=== PATIENT | female | born 1935 | race Caucasian/White ===

== ENCOUNTER 2016-12-15 13:06 | Inpatient (IN) | payer MEDICARE, OTHER ==
[~2016-12-15] VITALS: Ht 172.7 cm; Wt 87.1 kg
[~2016-12-15 13:06] MED LIST: ATOR20TA PO; CALC-190 PO; CHOL200047 PO; METO25TA99 PO; RIVA10TA PO; RIVA1PAT9 TRANSDERM; WALK1EAC55 MC
[2016-12-15 13:13] VITALS: BP 155/86; PULSE 114; RESP 22; O2SAT 93
[2016-12-15 13:56] LABS: BASOPHILS % (AUTO) 0.4 % (0-3); EOSINOPHILS % (AUTO) 0.4 % (0-5); MONOCYTES % (AUTO) 12.4 % (4-12); Mean Corpuscular Hemoglobin 30.8 pg (27.0-35.0); Mean Corpuscular Volume 93.8 fL (81-100); NEUTROPHILS % (AUTO) 76.6 % (40-74); Platelet Count 222 bil/L (150-400)
--- NOTE | 2016-12-15 14:22 | ED.REPORT ---
HPI-General Illness Date of Service Dec 15, 2016 ED Provider: Billy Cid MD Pt is an 81 y/o female w/ a hx of dementia, a-fib, HTN, PE, presenting to the ED from Urgent Care with her daughter c/o fever and cough onset yesterday. The pt was found to be febrile with a cough at her assisted living fdc community [facility] and was sent from Urgent Care for an evaluation. She was taken off Xarelto in October because her PCP felt it would do more harm than good. Her fdc home informs us that she is normally quite energetic and independent and for the past day she has been mildly fatigued. She is at her baseline confusion level. They deny N/V/D, CP, SOB. History limited due to dementia. Nursing Notes Stated Complaint: IRREGULAR HR Chief Complaint: FLU/Cold Symptoms Nursing Notes Reviewed: Yes (Verosee not reconciled - EMR indicates Xarelto use) Allergies: Coded Allergies: No Known Allergies (Unverified , 12/15/16) Scheduled Atorvastatin (Lipitor) 20 Mg Tablet 20 MG PO HS Ca Carb/Vit D3/Mag Ox/Zn Oxide (Timoteo Mag Zinc + D3 Tablet) 1 Each Tablet 1 EACH PO DAILY Memantine (Namenda) 10 Mg Tablet 5 MG PO BID Metoprolol Succinate ER (Metoprolol Succinate ER) 25 Mg Tab.er.24h 25 MG PO DAILY Scheduled PRN Acetaminophen (Tylenol Arthritis) 650 Mg Tablet.er 650 MG PO QID PRN PRN For Pain General Time Seen by MD: 14:18 Chief Complaint Other (Flu-like) Hx Obtained From: Patient, Daughter Arrived By: Wheelchair Sudden in Onset?: No Onset Occurred: 1 day ago Symptom Duration: Since onset Severity: Current: No pain currently Severity: Maximum: No pain Similar Sx Previous: No Past Medical History Past Medical History 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 Recently taken off Xarelto October 2016 Hx pulmonary embolism Alzheimer's disease Significant dementia Reports: Hyperlipidemia, Hypertension Smoking History Never Smoker Social History Other Social History: Good social support Ambulatory Status Independent Review of Systems Full Review of Systems Constitutional: Reports: Fever, Weakness - generalized Respiratory: Reports: Non-productive cough, Denies: Shortness of breath Cardiovascular: Denies: Chest pain GI: Denies: Abdominal pain, Diarrhea, Nausea, Vomiting Neurologic: Denies: Confusion Complete sys rev & neg: except as marked. Physical Exam Vital Signs Vital Signs Date Time Temp Pulse Resp B/P Pulse Ox O2 Delivery O2 Flow Rate FiO2 12/15/16 14:51 38.1 105 22 122/78 96 Room Air 12/15/16 13:13 39.0 114 22 155/86 93 Room Air Initial VS: Reviewed, Vital signs abnormal Head / Eyes: Atraumatic, Normocephalic, PERRL ENT: Mucous membranes moist, Conjunctiva normal, No scleral icterus Neck: Supple, Full range of motion Abdomen / GI: Soft, Non-tender, No guarding, No rebound, No distention Extremities: Vascular intact, Neuro intact, No swelling, No tenderness Skin: Warm, Dry, No cyanosis General/Constitutional: Awake, No acute distress, Cooperative, Not toxic appearing Demented, slightly confused, restless - according to family this is at baseline Febrile Respiratory / Chest: Atraumatic, Breath sounds = bilat, No respiratory distress , No wheezing, No retractions Rhonchi throughout Cardiovascular: Regular rhythm, Heart sounds NL, No gallop, No murmurs, No rubs , Cap refill not delayed, Peripheral circulation NL Heart Rate / Rhythm: Positive: Tachycardia Neurologic: Speech NL, No motor deficits, No sensory deficits Mental Status: Positive: Confused (Mild) Demented, slightly confused, poor historian - according to daughter this is baseline Psychiatric: Affect NL Poor insight into her own medical condition Interpretation & Diagnostics Lab Results Interpretation Result Diagram: 12/15/16 1340 12/15/16 1340 Test 12/15/16 13:40 White Blood Count 7.3th/mm3 (3.8-10.1) Red Blood Count 4.67mil/mm3 (3.90-5.20) Hemoglobin 14.4g/dL (12.0-15.6) Hematocrit 43.8% (35.0-46.0) Mean Corpuscular Volume 93.8fL (81-100) Mean Corpuscular Hemoglobin 30.8pg (27.0-35.0) Mean Corpuscular Hemoglobin Concent 32.9% (32.0-37.0) Red Cell Distribution Width 14.7% (12.3-15.4) Platelet Count 222bil/L (150-400) Neutrophils (%) (Auto) 76.6% (40-74) Lymphocytes (%) (Auto) 9.9% (14-46) Monocytes (%) (Auto) 12.4% (4-12) Eosinophils (%) (Auto) 0.4% (0-5) Basophils (%) (Auto) 0.4% (0-3) Prothrombin Time 11.1sec (8.1-12.5) Prothromb Time International Ratio 1.04ratio Sodium Level 140mEq/L (134-144) Potassium Level 4.4mEq/L (3.5-5.2) Chloride Level 101mEq/L (97-108) Carbon Dioxide Level 22mmol/L (18-29) Blood Urea Nitrogen 20mg/dL (8-27) Creatinine 0.80mg/dL (0.57-1.00) Estimat Glomerular Filtration Rate 98mL/min (>59) Glucose Level 106mg/dL (60-99) Lactic Acid Level 1.5mmol/L (0.4-2.0) Calcium Level 9.4mg/dL (8.5-10.1) Magnesium Level 2.2mg/dL (1.6-2.6) Total Bilirubin 0.8mg/dL (0.0-1.2) Aspartate Amino Transf (AST/SGOT) 36U/L (0-50) Alanine Aminotransferase (ALT/SGPT) 33U/L (0-32) Alkaline Phosphatase 91U/L (25-165) Troponin T < 0.010ug/L (0.0-0.011) Total Protein 7.7g/dL (6.4-8.4) Albumin 4.5g/dL (3.4-5.0) Lab Results Interpretation: Rapid flu swab positive for Influenza A CBC normal CMP normal Lactic acid normal Troponin negative Blood cultures pending ECG Interpretation ECG Interpretation: Sinus tachycardia rate 109 Q waves inferiorly Time: 15:05 Interpreted by: ED physician Normal ECG Interpretation: No acute ischemic changes X-Ray Chest Interpretation Chest Xray Interpretation: IMPRESSION: Patchy bilateral upper lobe opacities, suggestive of pneumonia. Dictated by: Kelly Chan M.D. on 12/15/2016 at 14:33 Approved by: Kelly Chan M.D. on 12/15/2016 at 14:33 View: Portable, 1 view Interpretation / Wet Read by: Interpret - Radiologist Re-Eval/Medical Decision Med Decision/Clinical Course This is an 81-year-old female with dementia who was not able bodied useful history. He is noted to have fevers, weakness, and not be quite her energetic self at [facility]. Staff called the family who took her to urgent care where she was noted be febrile, tachycardic, and was sent to the ED. Patient does not endorse a specific complaint but has significant dementia and is unable to give a useful history. History is from [facility] who were contacted , and from the family in the room. Patient is febrile, tachycardic, she is slightly restless, she is confused-the family thinks that to close to baseline. She does have a cough. Her workup is no for being influenza A positive, chest x -ray also positive for bilateral pneumonia. She does not appear toxic, and her blood work is relatively reassuring. However this is a confused, demented, lives in independent living, who has abnormal vitals, bilateral pneumonia, superimposed on influenza-I talked to [facility], they are concerned about being able to appropriately monitor her , basically to take her back shortly if she improves rapidly. The patient was started on Tamiflu, given hydration, and given the presence of secondary pneumonia and started on antibiotics with ceftriaxone and azithromycin for routine acquired pneumonia. She is also given additional Tylenol for fever-once it for hours and passed from her dose prior to coming in. Her temperature did come down, her heart rate did improve. She is admitted in stable condition. Source of Hx: Old records Time of Eval: 15:16 Patient Status: Condition improved Re-Evaluation/Progress Note: Pt rechecked. Informed pt of need for admission. Pt understands and agrees with plan for admission. All questions addressed. Consultation : Referral / Consult Name: Chanel Loyd MD Consulted With: Hospitalist Call Returned at: 15:17 Hand Cementer: Will see patient, Agrees with eval, Agrees with plan, Accepts admit Note: Case discussed Differential Diagnosis: Positive: Influenza, Pneumonia, Negative: Abdominal pain, Abscess, Allergies, Drug dependence, Laceration, Neutropenia Counseled Regarding: Diagnosis, Lab results, Need for admission Discharge & Departure Primary Impression: Influenza A Additional Impression: Bilateral pneumonia Pneumonia type: due to unspecified organism Lung location: upper lobe of lung Qualified Code: J18.9 - Pneumonia, unspecified organism Disposition: ADMITTED TO HOSPITAL Discharge Condition All VS Reviewed: Yes Condition: Stable Referrals: Opal Anne DO (PCP) Sudha Attestation Portions of this note were transcribed by Kevin Mensah. I, Dr. Cid personally performed the history, physical exam and medical decision-making; I reviewed and confirmed the accuracy of the information in the transcribed note. Signed by Sudha Bay, 12/15/16 - 1500 copies to: Opal Anne Matthew F MD Dec 15, 2016 14:22 KEVIN MENSAH Dec 15, 2016 14:34
[2016-12-15] MEDS ORDERED: 0.9% Sodium Chloride 1,000 ML IV ONE (14:35)
--- NOTE | 2016-12-15 14:35 | DRSVH ---
PROCEDURE: X-RAY CHEST ONE VIEW, PORTABLE ([id number]) INDICATIONS: SEPSIS TECHNIQUE: One view of the chest was acquired. COMPARISON: [facility], CR, XR CHEST 2VW, 07/11/2016, 9:38. FINDINGS: Surgical changes and devices: None. Lungs and pleura: No pleural effusions or pneumothorax. Patchy bilateral upper lobe opacities. Mediastinum: Mediastinal contours appear normal. Heart size is normal. Bones and chest wall: No suspicious bony lesions. Overlying soft tissues appear unremarkable. IMPRESSION: Patchy bilateral upper lobe opacities, suggestive of pneumonia. Dictated by: Kelly Chan M.D. on 12/15/2016 at 14:33 Approved by: Kelly Chan M.D. on 12/15/2016 at 14:33
[2016-12-15 14:36] LABS: INR 1.04 ratio
[2016-12-15 14:48] LABS: Magnesium 2.2 mg/dL (1.6-2.6); TROPONIN T < 0.010 ug/L (0.0-0.011)
[2016-12-15 14:51] VITALS: BP 122/78; PULSE 105; RESP 22; O2SAT 96
[2016-12-15] MEDS ORDERED: Azithromycin Inj 500 MG in Dextrose 5% w/Vial Mate 250 ML IV ONE (15:05)
[2016-12-15] MEDS ORDERED: cefTRIAXone Inj 2,000 MG in IV Premix 1 EACH IV ONE (15:05)
[2016-12-15] MEDS ORDERED: cefTRIAXone Inj 2,000 MG in Dextrose 5% Minibag Plus 50 ML IV SCH (15:26)
[2016-12-15] MEDS ORDERED: ACET-2766 PO (15:34)
[2016-12-15] MEDS ORDERED: NAM10 PO (15:34)
[2016-12-15] MEDS ORDERED: CA C1TAB77 PO (15:34)
[2016-12-15] MEDS ORDERED: Ondansetron 2 mg/mL 2 mL Inj IVPUSH PRN (15:50)
[2016-12-15] MEDS ORDERED: Alum-Mag Hydrox-Simeth 30 mL Suspension PO PRN (15:50)
[2016-12-15] MEDS ORDERED: Polyethylene Glycol (PEG) 17 Gm Powder PO PRN (16:25)
[2016-12-15] MEDS ORDERED: Albuterol 2.5 mg/3 mL Inhalation Solution NEB PRN (16:25)
[2016-12-15] MEDS: Sodium Chloride LOK Flush 10 mL Syringe IVFLUSH SCH ×2 (16:30→23:53)
[2016-12-15 16:45] VITALS: BP 134/73; PULSE 95; RESP 20; O2SAT 93
[2016-12-15] MEDS: 0.9% Sodium Chloride 1,000 ML IV SCH ×2 (16:55→23:52)
--- NOTE | 2016-12-15 18:10 | PCM.HPMED ---
Subjective Date of Service Dec 15, 2016 Primary Provider: Admitting Physician: Chanel Loyd MD Primary Care Physician: Opal Anne DO Attending Physician: Chanel Loyd MD Admit Status: From the Emergency Department, Full Admit, Admit to Blue Team Chief Complaint: cough and fever History of Present Illness: Yulisa is an 81yo [place] born female with Alzheimer's dementia and a history of pulmonary embolism in 06/2016 who presented to urgent care from [facility] with an intermittent cough and new onset of fever. Her fever was not reduced with acetaminophen today and thus they decided she needed medical evaluation. She was found to be tachycardic and was then routed to the ER where she tested positive for influenza A and found to have a temperature of 39.0 on arrival. Chest xray in the ER is suggestive of bilateral upper lobe pneumonia. She is at her baseline mental status and not able to provide a complete history of her symptoms over the past several days. Yulisa denies any dyspnea or chest pain. Per he daughter in law, Camryn, there have been several other people at [facility] that have been ill lately. Review of Systems: A comprehensive review of systems was conducted with the patient and found to be negative except as above in the History of Present Illness, note that her memory is not fully intact. Allergies Coded Allergies: No Known Allergies (Unverified , 12/15/16) Home Medications Atorvastatin 40mg qHS Metoprolol succinate 25mg daily Namenda 5mg BID Calcium supplement 500mg daily PMH Pulmonary embolism with catheter directed TPA given 07/09/2016 Has not been taking any anticoagulation for 18 days Alzheimer's dementia Hyperlipidemia Essential Hypertension, well controlled Surgical History Bilateral cataract surgery Family History No known cardiopulmonary disease in the family No known family hx of TB Father of Alzheimer's dementia Social History Hx Alcohol Use: No Hx Substance Use: No Hx Tobacco Use: No Smoking Status: Never Smoker Additional Information Yulisa is a who lives at [facility]. Her son, Akash, and his , Camryn, live locally and are her support system. She was born in [facility] and immigrated to the [place] following [place]. She does not use any assistive devices for ambulation and does not use any home oxygen. Exam Vital Signs Vital Sign - Last Date Time Temp Pulse Resp B/P Pulse Ox O2 Delivery O2 Flow Rate FiO2 12/15/16 15:50 38.1 105 22 122/78 96 Room Air Exam General: Elderly female patient resting comfortably in bed upon my entering the room. No acute distress, well-developed, well-nourished. Awake and alert. Oriented to person, not to time. Knows she is in [facility], does not know the city or that she is in a hospital. Pleasant. HEENT: Normocephalic, atraumatic. External ears without defect. Anicteric sclerae, moist conjunctivae. Oropharynx free of erythema and cobble stoning with moist mucosa. Neck: Supple with full range of motion. No jugular venous distension. No lymphadenopathy. Cardiovascular: Regular rate and rhythm with no murmurs, rubs, or gallops appreciated Pulmonary: Clear to auscultation bilaterally without crackles or rhonchi. There is a very subtle inspiratory wheeze on the right. Normal respiratory effort without use of accessory muscles. Abdomen: Normoactive bowel tones. Soft, nontender, nondistended. No hepatosplenomegaly or masses appreciated. Extremities: No clubbing, cyanosis, or edema appreciated. Skin: Normal temperature, turgor, and texture. Neurological: Cranial nerves grossly intact. Normal muscle strength, tone, and bulk. Upper extremity and lower extremity DTRs 2+ bilaterally. Psychiatric: Normal mood and affect. Lab and Diagnostics Result Diagram: 12/15/16 1340 12/15/16 1340 X-Rays, CTs and MRIs Chest xray: FINDINGS: Surgical changes and devices: None. Lungs and pleura: No pleural effusions or pneumothorax. Patchy bilateral upper lobe opacities. Mediastinum: Mediastinal contours appear normal. Heart size is normal. Bones and chest wall: No suspicious bony lesions. Overlying soft tissues appear unremarkable. IMPRESSION: Patchy bilateral upper lobe opacities, suggestive of pneumonia. Dictated by: Kelly Chan M.D. on 12/15/2016 at 14:33 Assessment & Plan Yulisa is a pleasant 81yo female with Alzheimer's dementia who presented to the Emergency department with new onset fever and cough. She is well known to me as I am her primary care provider. She has been admitted for the management of influenza A and potential pneumonia. 1. Influenza A, acute - Symptomatic and positive rapid flu swab - Tamiflu to be started - Acetaminophen PRN fever - Drop precautions - Monitor 2. Possible bilateral upper lobe pneumonia - Treating with ceftriaxone and Azithromycin for now - Procalcitonin ordered - Legionella and strep Ag testing ordered - Sputum culture - May consider discontinuation of antibiotics if this does not declare itself to be an obvious pneumonia and is not effecting her quality of life as her care goals, which are outlined in her POLST form, include antibiotics for comfort only. - Given her hx of pulmonary embolism not on anticoagulation, there is potential that she could have a pulmonary embolism accounting for her tachycardia, however the patient does not want treatment for a PE if there is one present. 3. Alzheimer's dementia, chronic - Continue with Namenda which she takes 5mg BID at home - May require extra reassurance regarding her environment 4. Hyperlipidemia, chronic and well controlled - Continue with home dosing of atorvastatin 5. Essential Hypertension, chronic and well controlled - Has been taking metoprolol succinate for many years, will continue her home dose. Bowel regimen PRN Diet: General Márquez is admitted under inpatient status with expected length of stay greater than 2 midnights due to risk of adverse event, coordination of care, and complexity of treatment plan. VTE Prophylaxis: Sub-Q Heparin (Unfractionated) Resuscitation Status: DNR/DNI:Do Not Resuscitate/Intubate (Reviewed POLST signed in 06/2016 with the patient and her daughter in law who agree to continue with DNR status.) Time spent 45 minutes Attending Statement I have seen and examined patient at bedside in addition to directly supervising care provided by resident physician. I agree with above documentation. Opal Anne DO Dec 15, 2016 16:50 Jaime Ornelas DO Dec 16, 2016 07:37
[2016-12-15] MEDS: Heparin 5,000 Unit/mL Inj SUBQ SCH (18:19)
--- NOTE | 2016-12-15 18:27 | NUR ---
Admit Pt arrived to floor at 1630, able to transfer self to bed after standing scale weight. Pt oriented to self only, but able to make clear conversation. IVF's infusing as ordered. Per ED report, zithromax not yet given. Pharmacy notified to send zithromax to floor, not yet received. Mild nonproductive cough noted. Pt currently resting comfortably in bed, voices no complaints.
[2016-12-15 20:30] VITALS: BP 141/86; PULSE 87; RESP 18; O2SAT 94
[2016-12-15 21:10] LABS: APPEARANCE,URINE CLEAR (CLEAR,HAZY); COLOR,URINE YELLOW (YELLOW); OCCULT BLOOD,URINE NEGATIVE (NEGATIVE); PH,URINE 5.5 (5.0-8.0)
[2016-12-16] MEDS: Heparin 5,000 Unit/mL Inj SUBQ SCH ×3 (01:02→16:57)
[2016-12-16 06:07] VITALS: BP 127/73; PULSE 73; RESP 18; O2SAT 94
--- NOTE | 2016-12-16 06:45 | NUR ---
PT ACTIVITY Pt awake briefly during beginning of shift. Pt up to BR, took evening medications, then slept for most of shift. Pt oriented to self. Pt is pleasant, disoriented to situation, able to answer questions appropriately. No c/o pain. Continue to monitor. Call light in reach. Bed alarm on. Intentional rounding.
[2016-12-16] MEDS ORDERED: cefTRIAXone Inj 2 GM in IV Premix 1 EACH IV SCH (08:30)
[2016-12-16] MEDS ORDERED: Azithromycin Inj 500 MG in Dextrose 5% w/Vial Mate 250 ML IV SCH (08:30)
[2016-12-16] MEDS: Calcium Carbonate (Oyster Shell) 500 mg Tablet PO SCH (09:27)
[2016-12-16] MEDS: MeTOProlol XL 25 mg ER24 Tablet PO SCH (09:28)
[2016-12-16] MEDS: Sodium Chloride LOK Flush 10 mL Syringe IVFLUSH SCH ×2 (09:35→16:57)
[2016-12-16 13:14] VITALS: BP 123/86; PULSE 95; RESP 18; O2SAT 95
--- NOTE | 2016-12-16 13:49 | PCM.PNMED ---
Subjective Date of Service Dec 16, 2016 Subjective Yulisa reports that she is feeling fine. She continues to have a periodic nonproductive cough. Exam Vital Signs Vital Sign - Last Date Time Temp Pulse Resp B/P Pulse Ox O2 Delivery O2 Flow Rate FiO2 12/16/16 13:14 36.4 95 18 123/86 95 Room Air Intake and Output 12/15/16 12/15/16 12/16/16 Cumulative From/Thru 15:00 23:00 07:00 12/15/16 13:13 - 12/16/16 06:44 Intake Total 1000 ml 860 ml 822 ml 2682 ml Output Total 300 ml 450 ml 750 ml Balance 1000 ml 560 ml 372 ml 1932 ml Intake Oral 237 ml 100 ml 337 ml IV Total 1000 ml 623 ml 722 ml 2345 ml Output Urine Total 300 ml 450 ml 750 ml Exam General: Elderly female sitting in the bedside chair eating breakfast this morning. No acute distress, well-nourished. Awake and alert. Oriented to person. Does not know the year or season. REWports being in [facility], does not know the city or that she is in a hospital. Pleasant. HEENT: Normocephalic, atraumatic. External ears without defect. Anicteric sclerae, moist conjunctivae. Moist mucus membranes Cardiovascular: Regular rate and rhythm with no murmurs, rubs, or gallops appreciated Pulmonary: Clear to auscultation bilaterally without wheezes, crackles or rhonchi. Normal respiratory effort without use of accessory muscles. Abdomen: Normoactive bowel tones. Soft, nontender, nondistended. No hepatosplenomegaly or masses appreciated. Extremities: No clubbing, cyanosis, or edema appreciated. Skin: Normal temperature, turgor, and texture. Neurological: Cranial nerves grossly intact. Normal muscle strength, tone, and bulk. Psychiatric: Normal mood and affect. IVs and Medications Medications Reviewed: Medications were reviewed in detail Lab and Diagnostics Result Diagram: 12/15/16 1340 12/15/16 1340 Assessment & Plan Yulisa is a pleasant 81yo female with Alzheimer's dementia who presented to the Emergency department with new onset fever and cough. She is well known to me as I am her primary care provider. She has been admitted for the management of influenza A and potential pneumonia. 1. Influenza A, acute, present on admission - Symptomatic and positive rapid flu swab - Continue Tamiflu - Acetaminophen PRN fever - Droplet precautions - Monitor 2. Possible bilateral upper lobe pneumonia based on chest xray - Chest clear to auscultation and procalcitonin is low - Treating with ceftriaxone and Azithromycin for now - Considering discontinuation of antibiotics as this is not an obvious pneumonia and her care goals, which are outlined in her POLST form, include antibiotics for comfort only. - Given her hx of pulmonary embolism not on anticoagulation, there is potential that she could have a pulmonary embolism accounting for her tachycardia in the ER, however the patient does not want treatment for a PE if there is one present. I suspect the tachycardia was due to fever with influenza. 3. Alzheimer's dementia, chronic and stable - She is at her baseline mental status - Continue with Namenda which she takes 5mg BID at home - May require extra reassurance regarding her environment 4. Hyperlipidemia, chronic and well controlled - Continue with home dosing of atorvastatin 5. Essential Hypertension, chronic and well controlled - Has been taking metoprolol succinate for many years, will continue her home dose. Bowel regimen PRN Diet: General Dispo: Anticipate discharge tomorrow, back to [facility] VTE Prophylaxis: Sub-Q Heparin (Unfractionated) Resuscitation Status: DNR/DNI:Do Not Resuscitate/Intubate (Reviewed POLST signed in 06/2016 with the patient and her daughter in law who agree to continue with DNR status.) Time spent 25 minutes Attending Statement I have seen and evaluated patient at bedside in addition to directly supervising care provided by resident physician. I agree with above documentation. Opal Anne DO Dec 16, 2016 13:49 Jaime Ornelas DO Dec 17, 2016 08:33
--- NOTE | 2016-12-16 16:25 | NUR ---
Social Work: Initial Assessment Data: Pt is an 81 y/o female admitted for pneumonia, influenza A. Pt's PCP is Dr Mauricio, pt's insurance is Medicare with [employer] out of state supp. EMR reviewed, CIGAR HEAD STRINGER met with pt and son at bedside, role explained. Pt has dementia, pt's son answered questions. Pt lives at [facility], no steps, pt has no history of HH or SNF, no LTC or VA benefits, and is not a caregiver for another. Pt son states he is the DPOA. CIGAR HEAD STRINGER requested a copy for hospital. CIGAR HEAD STRINGER will call [facility] on 12/17 to talk about need for re-assessment. CIGAR HEAD STRINGER will continue to follow. Assessment: Pt with dementia. Plan: Pt will likely d/c back to [facility]. CIGAR HEAD STRINGER to call [facility] 12/17. CIGAR HEAD STRINGER will continue to follow. KAVIN Whitney Addendum: 12/16/16 at 1630 by EVIN SORIA Amended: Links added.
--- NOTE | 2016-12-16 17:53 | NUR ---
UNSTEADY GAIT P: Pt states that her balance is off, since she's been sick and her gait is slightly unsteady. I: Pt's bed is in lowest, locked position, bed and chair alarms have been utilized, non-skid footwear worn all day, and provided pt education on using her call light when she wants to use the BR or go for a walk. E: Pt has used her call light for most of the day, but sometimes forgets d/t her dementia. Pt is tolerating activity well.
[2016-12-16 21:14] VITALS: BP 154/91; PULSE 95; RESP 18; O2SAT 95
[2016-12-17] MEDS: Heparin 5,000 Unit/mL Inj SUBQ SCH ×3 (00:59→17:14)
[2016-12-17] MEDS: Sodium Chloride LOK Flush 10 mL Syringe IVFLUSH SCH ×3 (00:59→17:15)
[2016-12-17 05:28] VITALS: BP 131/71; PULSE 76; RESP 18; O2SAT 92
[2016-12-17] MEDS: Calcium Carbonate (Oyster Shell) 500 mg Tablet PO SCH (07:53)
[2016-12-17] MEDS: MeTOProlol XL 25 mg ER24 Tablet PO SCH (07:53)
--- NOTE | 2016-12-17 09:00 | NUR ---
BRIELLE signed Verbal consent to sign by pt's son. KAVIN Whitney
--- NOTE | 2016-12-17 09:25 | NUR ---
Social Work: Continued d/c planning Data: Pt is on day 2 of hospitalization. EMR reviewed. TRACK INSPECTING SUPERVISOR called [facility] and confirmed pt is on their Assisted living side. TRACK INSPECTING SUPERVISOR spoke with Davina about if pt will require a re-assessment before d/c. Davina states they will do an evaluation today before the weekend. TRACK INSPECTING SUPERVISOR will await phone call form them regarding assessment. TRACK INSPECTING SUPERVISOR will continue to follow. Assessment: Pt with dementia from [facility]. Plan: Pt will likely d/c back to [facility]. TRACK INSPECTING SUPERVISOR will await phone call form them regarding assessment. TRACK INSPECTING SUPERVISOR will continue to follow. KAVIN Whitney
--- NOTE | 2016-12-17 10:33 | NUR ---
BRIELLE: Patient unable to receive BRIELLE asked PIECER to follow up with family via phone.
--- NOTE | 2016-12-17 11:02 | NUR ---
Social Work: Readiness for d/c Data: Pt is on day 2 of hospitalization, EMR reviewed, pt discussed in rounds. states that pt is likely ready for d/c today. Davina from [facility] called SUSTAINABILITY COMMUNICATOR and stated they no longer need to re-assess pt before d/c and that she can return when stable. SUSTAINABILITY COMMUNICATOR will continue to follow. Plan: Pt will return to [facility] via POV with son when medically stable, likely today. SUSTAINABILITY COMMUNICATOR will continue to follow. KAVIN Whitney
--- NOTE | 2016-12-17 15:02 | NUR ---
Evaluation completed. Please go to "Notes" then click on "Assessments and Notes" (bottom left corner of screen). Then select appropriate discipline tab on top of screen.
--- NOTE | 2016-12-17 16:05 | NUR ---
Social Work: Continued d/c planning Data: [employer] COACH spoke with MD and with pt's son. states that pt will remain in the hospital for the night and will likely d/c tomorrow. Pt's son plans to provide transportation tomorrow. [facility] states pt does not require an assessment before pt returns. [employer] COACH will continue to follow. Assessment: Pt with dementia. Plan: Pt will d/c back to [facility] when medically stable, likely tomorrow. [employer] COACH will continue to follow. KAVIN Whitney
--- NOTE | 2016-12-17 18:50 | PCM.PNMED ---
Subjective Date of Service Dec 17, 2016 Subjective Yulisa reports that she is feeling a bit more tired than usual. Per nursing, she has been a bit unsteady on her feet. She denies any dizziness. Exam Vital Signs Vital Sign - Last Date Time Temp Pulse Resp B/P Pulse Ox O2 Delivery O2 Flow Rate FiO2 12/17/16 05:28 36.6 76 18 131/71 92 Room Air Intake and Output 12/16/16 12/16/16 12/17/16 Cumulative From/Thru 15:00 23:00 07:00 12/15/16 13:13 - 12/17/16 06:49 Intake Total 731 ml 1072 ml 200 ml 4685 ml Output Total 800 ml 1700 ml 3250 ml Balance 731 ml 272 ml -1500 ml 1435 ml Intake Oral 1072 ml 200 ml 1609 ml IV Total 731 ml 3076 ml Output Urine Total 800 ml 1700 ml 3250 ml # Voids 1 1 # Bowel Movements 0 0 0 Exam General: Elderly female sitting in the bedside chair eating breakfast this morning. No acute distress, well-nourished. Awake and alert. Oriented to person and place, not to time. HEENT: Normocephalic, atraumatic. External ears without defect. Anicteric sclerae, moist conjunctivae. Moist mucus membranes Cardiovascular: Regular rate and rhythm with no murmurs, rubs, or gallops appreciated Pulmonary: Clear to auscultation bilaterally without wheezes, crackles or rhonchi. Normal respiratory effort without use of accessory muscles. Abdomen: Normoactive bowel tones. Soft, nontender, nondistended. No hepatosplenomegaly or masses appreciated. Extremities: No clubbing, cyanosis, or edema appreciated. Skin: Normal temperature, turgor, and texture. Neurological: Cranial nerves grossly intact. Normal muscle strength, tone, and bulk. Psychiatric: Normal mood and affect. IVs and Medications Medications Reviewed: Medications were reviewed in detail Lab and Diagnostics Result Diagram: 12/15/16 1340 12/15/16 1340 Assessment & Plan Yulisa is a pleasant 81yo female with Alzheimer's dementia who presented to the Emergency department with new onset fever and cough. She is well known to me as I am her primary care provider. She has been admitted for the management of influenza A 1. Influenza A, acute, present on admission - Symptomatic and positive rapid flu swab - Continue Tamiflu - Acetaminophen PRN fever - Droplet precautions - Physical therapy evaluation as she has had some unsteady gait earlier today - Monitor 2. Possible bilateral upper lobe pneumonia based on chest xray - Chest clear to auscultation and procalcitonin is low - Treating with ceftriaxone and Azithromycin for now - Considering discontinuation of antibiotics as this is not an obvious pneumonia and her care goals, which are outlined in her POLST form, include antibiotics for comfort only. - Given her hx of pulmonary embolism not on anticoagulation, there is potential that she could have a pulmonary embolism accounting for her tachycardia in the ER, however the patient does not want treatment for a PE if there is one present. I suspect the tachycardia was due to fever with influenza. 3. Alzheimer's dementia, chronic and stable - She is at her baseline mental status - Continue with Namenda which she takes 5mg BID at home - May require extra reassurance regarding her environment 4. Hyperlipidemia, chronic and well controlled - Continue with home dosing of atorvastatin 5. Essential Hypertension, chronic and well controlled - Has been taking metoprolol succinate for many years, will continue her home dose. Bowel regimen PRN Diet: General Dispo: Anticipate discharge tomorrow, she received a physical therapy evaluation today, Plan for her to go back to [facility] Prophylaxis: Sub-Q Heparin (Unfractionated) Resuscitation Status: DNR/DNI:Do Not Resuscitate/Intubate (Reviewed POLST signed in 06/2016 with the patient and her daughter in law who agree to continue with DNR status.) Time spent 30 minutes Attending Statement I have seen and evaluated patient at bedside in addition to directly supervising care provided by resident physician. I agree with above documentation. Opal Anne DO Dec 17, 2016 18:48 Jaime Ornelas DO Dec 18, 2016 12:07
[2016-12-17 20:03] VITALS: BP 128/76; PULSE 80; RESP 18; O2SAT 94
[2016-12-18] MEDS: Sodium Chloride LOK Flush 10 mL Syringe IVFLUSH SCH ×2 (00:30→08:28)
[2016-12-18] MEDS: Heparin 5,000 Unit/mL Inj SUBQ SCH ×2 (00:30→08:26)
[2016-12-18 05:30] VITALS: BP 132/74; PULSE 70; RESP 18; O2SAT 95
[2016-12-18] MEDS ORDERED: OSEL30CA PO (07:10)
--- NOTE | 2016-12-18 07:15 | PCM.DIMED ---
Opal Anne DO 12/18/16 0715: Discharge Instructions Date of Service Dec 18, 2016 Dates of Hospitalization Dec 15, 2016 at 15:42 Discharge Diagnosis Discharge Diagnosis Influenza A, acute, present on admission and under treatment Possible bilateral upper lobe pneumonia based on chest xray - Labs and physical examination were don supportive of a diagnosis of pneumonia, thus antibiotics were discontinued the morning of 12/17/16 Alzheimer's dementia, chronic and stable Hyperlipidemia, chronic and well controlled Essential Hypertension, chronic and well controlled Medication Instructions There are 4 more doses of Tamiflu (oseltamivir) needed to complete the course of treatment for influenza. The first dose that you will take after discharge should be the evening of . The last dose will be the morning of 12/20/16. Take 1 tablet of Tamiflu by mouth twice daily. Test Results Positive Influenza A on rapid assay Diet No restrictions Activity No restrictions Call your provider Fever or Chills, Shortness of breath, Bleeding, Chest pain, Vomitting, Excessive diarrhea, Weakness (unilateral) Patient Instructions Follow-up Provider: Opal Anne DO Follow-up with PCP in: Other (If not completely back to her usual state of health in 1 week from now, please call the residency clinic to schedule a follow up.) Jaime Ornelas DO 12/18/16 1223: Discharge Instructions Attending's Statement Read and agree Opal Anne DO Dec 18, 2016 07:15 Jaime Ornelas DO Dec 18, 2016 12:23
[2016-12-18] MEDS: MeTOProlol XL 25 mg ER24 Tablet PO SCH (08:28)
[2016-12-18] MEDS: Calcium Carbonate (Oyster Shell) 500 mg Tablet PO SCH (08:28)
--- NOTE | 2016-12-18 10:11 | NUR ---
Social Work: Discharge Data: Pt is on day 3 of hospitalization. EMR reviewed. D/C orders are in. MULTIPLE PRESSURE RIVETER OPERATOR called pt's son who plans to transport pt to [facility] today and will be to the hospital shortly. Davina with [facility] stated previously no assessment was needed for pt. MULTIPLE PRESSURE RIVETER OPERATOR called [facility] to notify them that pt is discharging. No further d/c planning needs at this time. MULTIPLE PRESSURE RIVETER OPERATOR will continue to follow if needs arise. Assessment: Pt with dementia. Plan: Pt will d/c back to [facility] assisted living via POV with son this morning. No further d/c planning needs at this time. MULTIPLE PRESSURE RIVETER OPERATOR will continue to follow if needs arise. KAVIN Whitney
--- NOTE | 2016-12-18 10:44 | PCM.DC.MED ---
Discharge Summary Date of Service Dec 18, 2016 Dates of Hospitalization Date of Hospital Admission Dec 15, 2016 at 15:42 Date of Discharge: Dec 18, 2016 Providers: Admitting Physician: Chanel Loyd MD Primary Care Physician: Opal Anne DO Attending Physician: Chanel Loyd MD Diagnosis at Time of Discharge Diagnosis at Time of Discharge Influenza A, acute, present on admission and under treatment Possible bilateral upper lobe pneumonia based on chest xray - Labs and physical examination were don supportive of a diagnosis of pneumonia, thus antibiotics were discontinued the morning of 12/17/16 Alzheimer's dementia, chronic and stable Hyperlipidemia, chronic and well controlled Essential Hypertension, chronic and well controlled Procedures XRay, CTs & MRIs Chest xray 12/15/16: FINDINGS: Surgical changes and devices: None. Lungs and pleura: No pleural effusions or pneumothorax. Patchy bilateral upper lobe opacities. Mediastinum: Mediastinal contours appear normal. Heart size is normal. Bones and chest wall: No suspicious bony lesions. Overlying soft tissues appear unremarkable. IMPRESSION: Patchy bilateral upper lobe opacities, suggestive of pneumonia. Dictated by: Kelly Chan M.D. on 12/15/2016 at 14:33 Brief History Per H&P by Dr Anne: Yulisa is an 81yo [place] born female with Alzheimer's dementia and a history of pulmonary embolism in 06/2016 who presented to urgent care from [facility] with an intermittent cough and new onset of fever. Her fever was not reduced with acetaminophen today and thus they decided she needed medical evaluation. She was found to be tachycardic and was then routed to the ER where she tested positive for influenza A and found to have a temperature of 39.0 on arrival. Chest xray in the ER is suggestive of bilateral upper lobe pneumonia. She is at her baseline mental status and not able to provide a complete history of her symptoms over the past several days. Yulisa denies any dyspnea or chest pain. Per he daughter in law, Camryn, there have been several other people at [facility] that have been ill lately. Hospital Course The following were addressed during this hospitalization: 1. Influenza A, acute, present on admission, symptoms improved - Symptomatic and positive rapid flu swab - Tamiflu started in the ER and given 30mg BID through discharge, 4 doses needed post discharge to complete a 5 day course. - Acetaminophen PRN fever - Droplet precautions during this hospitalization - Physical therapy evaluated as she had some unsteady gait on 12/17/16, no restrictions needed per PT 2. Possible bilateral upper lobe pneumonia based on chest xray - Chest clear to auscultation and procalcitonin is low - Treated with ceftriaxone and Azithromycin for the first 24hours of admission - Discontinued antibiotics as she does not have an obvious pneumonia and her care goals, which are outlined in her POLST form, include antibiotics for comfort only. - Given her hx of pulmonary embolism not on anticoagulation, there is potential that she could have a pulmonary embolism accounting for her tachycardia in the ER, however the patient does not want treatment for a PE if there is one present. I suspect the tachycardia was due to fever with influenza. - Her tachycardia resolved with resolution of her fever 3. Alzheimer's dementia, chronic and stable - She is at her baseline mental status - Continued with Namenda which she takes 5mg BID at home - Required extra reassurance from nursing staff regarding her environment 4. Hyperlipidemia, chronic and well controlled - Continued with home dosing of atorvastatin 5. Essential Hypertension, chronic and well controlled - Has been taking metoprolol succinate for many years,this was continued during her hospitalization Bowel regimen PRN Diet: General Exam Vital Signs (Last) Date Time Temp Pulse Resp B/P Pulse Ox O2 Delivery O2 Flow Rate FiO2 12/18/16 05:30 36.8 70 18 132/74 95 Room Air Exam General: Elderly female sitting up in the bedside chair this morning. No acute distress, well-nourished. Awake and alert. Oriented to person and place, not to time. HEENT: Normocephalic, atraumatic. External ears without defect. Anicteric sclerae, moist conjunctivae. Moist mucus membranes Cardiovascular: Regular rate and rhythm without murmur, rub, or gallop appreciated Pulmonary:Good inspiratory effort. No wheezes, crackles or rhonchi appreciated. Abdomen: Normoactive bowel tones. Soft, nontender, nondistended. No hepatosplenomegaly or masses appreciated. Extremities: No clubbing, cyanosis, or edema bilaterally. Skin: Normal temperature, turgor, and texture. Neurological: Cranial nerves grossly intact. Normal muscle strength, tone, and bulk. Psychiatric: Normal mood and affect. Pleasant and smiling. Test 12/15/16 13:40 1/18/17 20:27 12/18/16 05:18 White Blood Count 7.3th/mm3 (3.8-10.1) Red Blood Count 4.67mil/mm3 (3.90-5.20) Hemoglobin 14.4g/dL (12.0-15.6) Hematocrit 43.8% (35.0-46.0) Mean Corpuscular Volume 93.8fL (81-100) Mean Corpuscular Hemoglobin 30.8pg (27.0-35.0) Mean Corpuscular Hemoglobin Concent 32.9% (32.0-37.0) Red Cell Distribution Width 14.7% (12.3-15.4) Platelet Count 222bil/L (150-400) Neutrophils (%) (Auto) 76.6% (40-74) Lymphocytes (%) (Auto) 9.9% (14-46) Monocytes (%) (Auto) 12.4% (4-12) Eosinophils (%) (Auto) 0.4% (0-5) Basophils (%) (Auto) 0.4% (0-3) Prothrombin Time 11.1sec (8.1-12.5) Prothromb Time International Ratio 1.04ratio Sodium Level 140mEq/L (134-144) Potassium Level 4.4mEq/L (3.5-5.2) Chloride Level 101mEq/L (97-108) Carbon Dioxide Level 22mmol/L (18-29) Blood Urea Nitrogen 20mg/dL (8-27) Creatinine 0.80mg/dL (0.57-1.00) Estimat Glomerular Filtration Rate 98mL/min (>59) Glucose Level 106mg/dL (60-99) Lactic Acid Level 1.5mmol/L (0.4-2.0) Calcium Level 9.4mg/dL (8.5-10.1) Magnesium Level 2.2mg/dL (1.6-2.6) Total Bilirubin 0.8mg/dL (0.0-1.2) Aspartate Amino Transf (AST/SGOT) 36U/L (0-50) Alanine Aminotransferase (ALT/SGPT) 33U/L (0-32) Alkaline Phosphatase 91U/L (25-165) Troponin T < 0.010ug/L (0.0-0.011) Total Protein 7.7g/dL (6.4-8.4) Albumin 4.5g/dL (3.4-5.0) Urine Color Yellow (YELLOW) Urine Appearance Clear (CLEAR,HAZY) Urine pH 5.5 (5.0-8.0) Urine Specific [place] 1.025 (1.003-1.035) Urine Protein Tracemg/dL (NEG,TRACE) Urine Glucose (UA) Negativemg/dL (NEGATIVE) Urine Ketones Negativemg/dL (NEGATIVE) Urine Occult Blood Negative (NEGATIVE) Urine Nitrite Negative (NEGATIVE) Urine Bilirubin Negative (NEGATIVE) Urine Urobilinogen 1.0mg/dL (NORMAL) Urine Leukocyte Esterase Negative (NEGATIVE) Urine RBC 0-2/hpf (0-2) Urine WBC 0-5/hpf (0-5) Urine Epithelial Cells None/hpf (NONE-MOD) Urine Crystals Oxalic acid crystals (NONE Urine Bacteria None/hpf (NONE-FEW) Urine Hyaline Casts None/lpf (NONE) Urine Granular Casts None seen (NONE SEEN) Urine Waxy Casts None seen (NONE SEEN) Urine Red Blood Cell Casts None seen (NONE SEEN) Urine White Blood Cell Casts None seen (NONE SEEN) Urine Mucus None seen (None Seen) Urine Trichomonas None seen (NONE SEEN) Urine Yeast None (NONE SEEN) Urinalysis Comment Timoteo carbonate erick Urine Culture Reflexed Not indicated Urine Legionella pneumophilia Ag Negative (Negative) Discharge Medications Discharge Medications Atorvastatin (Lipitor) 20 Mg Tablet 20 MG PO HS (Reported) Ca Carb/Vit D3/Mag Ox/Zn Oxide (Timoteo Mag Zinc + D3 Tablet) 1 Each Tablet 1 EACH PO DAILY (Reported) Memantine (Namenda) 10 Mg Tablet 5 MG PO BID (Reported) Metoprolol Succinate ER (Metoprolol Succinate ER) 25 Mg Tab.er.24h 25 MG PO DAILY (Reported) Oseltamivir Phosphate (Tamiflu) 30 Mg Capsule 30 MG PO BID Take 1 tablet by mouth twice daily. The first dose should be the evening of . Prescribed by: OPAL ANNE, DO As needed Acetaminophen (Tylenol Arthritis) 650 Mg Tablet.er 650 MG PO QID PRN PRN For Pain (Reported) Additional med instructions There are 4 more doses of Tamiflu (oseltamivir) needed to complete the course of treatment for influenza. The first dose that you will take after discharge should be the evening of . The last dose will be the morning of 12/20/16. Take 1 tablet of Tamiflu by mouth twice daily. Followup Plan Disposition: [facility] Follow-up plan Discussed with the patent's son, Akash, that they may call the [facility] to schedule a follow up appointment in 1 week if she is not entirely back to her normal state of health. Discharge Diet: No restrictions Discharge Activity: No restrictions Follow-up Provider: Opal Anne DO Follow-up with PCP in: Other (If not completely back to her usual state of health in 1 week from now, please call the residency clinic to schedule a follow up.) Time spent 40 minutes Attending Statement I have seen and evaluated patient at bedside and directly supervised care provided by resident physician. I agree with above documentation. Opal Anne DO Dec 18, 2016 07:22 Jaime Ornelas DO Dec 18, 2016 14:58
--- NOTE | 2016-12-18 10:49 | NUR ---
DISCHARGE Pt discharged back to [facility] this morning at 1030, accompanied off unit by son and daughter in law. Pt alert, oriented to self and location only. Vital signs stable, denies pain and in no apparent distress. IV dc'd intact, all belongings returned. All instructions for diet, activity, medications, prescriptions and follow up reviewed with patient and son who report understanding. MD in and spoke with family as well prior to dc.
== END 2016-12-18 10:35 | DRG 195 ==
LOC: SED 13:06 → MPC 15:42
PROVIDERS: ADMIT Urology; ATTEND Family Medicine
DX: J10.00 Influenza due to other identified influenza virus with unspecified type of pneumonia (principal); G30.9 Alzheimer's disease, unspecified; I48.91 Unspecified atrial fibrillation; I10 Essential (primary) hypertension; Z86.711 Personal history of pulmonary embolism; F02.80 Dementia in other diseases classified elsewhere, unspecified severity, without behavioral disturbance, psychotic disturbance, mood disturbance, and anxiety; E78.5 Hyperlipidemia, unspecified; Z66 Do not resuscitate; B97.89 Other viral agents as the cause of diseases classified elsewhere